=== PATIENT | female | born 2000 | race African-American/Black ===

== ENCOUNTER 2021-09-23 07:29 | Emergency (ER) | payer OTHER ==
[~2021-09-23] VITALS: Ht 165.1 cm; Wt 61.7 kg
[2021-09-23 07:33] VITALS: BP 111/58
--- NOTE | 2021-09-23 07:35 | NUR ---
PT AMBULATED TO BED 4
--- NOTE | 2021-09-23 07:45 | NUR ---
21 Y/O FEMALE C/O CHEST PAIN RADIATING TO HER RIGHT SHOULDER AND EPISODES OF SOB X 2 DAYS. PT DENIES RECENT INJURY OR TRAUMA. VSS. BP 11/58, O2 SAT 99% ROOM AIR. PT ALERT AND ORIENTED X4. PT DENIES TAKING MEDS FOR PAIN. PT DENIES NAUSEA, VOMITING, DIARRHEA. PT DENIES FEVER, CHILLS. MEDHX: ASTHMA ALLERGIES: NKA
--- NOTE | 2021-09-23 08:23 | NUR ---
PT TAKEN TO XR VIA WC
[2021-09-23] MEDS ORDERED: BPM/118S31 PO (08:28)
[2021-09-23 09:08] VITALS: BP 111/58
--- NOTE | 2021-09-23 09:09 | NUR ---
Patient discharged with v/s stable. Written and verbal after care instructions given and explained. Patient alert, oriented and verbalized understanding of instructions. Ambulatory with steady gait. All questions addressed prior to discharge. ID band removed. Patient advised to follow up with PMD. Rx of BROMFED DM COUGH SYRUP given. Patient educated on indication of medication including possible reaction and side effects. Opportunity to ask questions provided and answered.
== END 2021-09-23 09:09 | disposition home or self-care (01) ==
LOC: MED 07:29
DX: J40 Bronchitis, not specified as acute or chronic (principal); R07.89 Other chest pain; J45.909 Unspecified asthma, uncomplicated
CPT/HCPCS: 71046; 81002; 81025; 93005; 99283